=== PATIENT | male | born 1960 | race Caucasian/White ===

== ENCOUNTER 2016-09-17 13:58 | Emergency (ER) | payer MEDICARE ==
[~2016-09-17] VITALS: Ht 182.9 cm; Wt 83.2 kg
[~2016-09-17 13:58] MED LIST: CARV3.122 PO; CLON-365 PO; FLUO40CA9 PO; LOSA100T6 PO; LOSA1TAB16 PO; TRAZ100T15 PO; ZIPR80CA2 PO
[2016-09-17] MEDS ORDERED: SODIUM CHLORIDE 0.9% 1,000 ML IV ONE (14:20)
[2016-09-17] MEDS ORDERED: ONDANSETRON 2MG/ML, 2ML ONE (14:29)
[2016-09-17] MEDS ORDERED: SODIUM CHLORIDE FLUSH 10ML SYR IVF ONE (14:30)
[2016-09-17] MEDS ORDERED: ONDANSETRON 2MG/ML, 2ML IVPush ONE (14:30)
[2016-09-17] MEDS ORDERED: SODIUM CHLORIDE 0.9% 1,000ML IVBOLUS ONE (14:30)
[2016-09-17 14:54] LABS: BLOOD UREA NITROGEN 10 mg/dL (7-18)
[2016-09-17 14:57] LABS: ASPARTATE AMINO TRANSFERASE 39 U/L (15-37)
[2016-09-17 14:59] LABS: ACETAMINOPHEN < 2 mcg/mL (10-30); IS PT STATUS REG ER OR PRE ER? YES
[2016-09-17] MEDS ORDERED: LORazepam 2 MG/ML, 1ML ONE (15:12)
[2016-09-17] MEDS ORDERED: LORazepam 2 MG/ML, 1ML IVPush ONE (15:30)
[2016-09-17 15:33] VITALS: BP 157/102
== END 2016-09-17 16:46 | disposition left against medical advice (07) ==
LOC: ED 16:40
DX: F10.221 Alcohol dependence with intoxication delirium (principal); E87.0 Hyperosmolality and hypernatremia; I10 Essential (primary) hypertension; F31.9 Bipolar disorder, unspecified; G20 Parkinson's disease; E11.9 Type 2 diabetes mellitus without complications
CPT/HCPCS: 36415; 70450; 71010; 80053; 80307; 80329; 82140; 83605; 83690; 84484; 85025; 85610; 85730; 96361; 96374; 96375; 99285; J2060; J2405; J7030; G0480